=== PATIENT | female | born 1960 | race Caucasian/White ===

== ENCOUNTER 2021-06-19 06:13 | Outpatient (REF) | payer OTHER, SELFPAY ==
[2021-06-19 07:19] LABS: Hematocrit 39.8 % (37.0-47.0); Hemoglobin 13.3 g/dl (12.0-16.0); Mean Corpuscular HGB Conc 33.4 g/dl (31.0-35.0); Mean Corpuscular Hemoglobin 30.8 pg (27.0-33.0); Mean Corpuscular Volume 92.1 fL (80.0-98.0); Mean Platelet Volume 11.1 fL (9.4-12.3); Platelet Count 273 X10*3/uL (160-400); Red Blood Count 4.32 X10*6/uL (4.20-5.50); Red Cell Distribution Width 12.5 % (11.0-16.0)
[2021-06-19 07:56] LABS: Rheumatoid Factor < 15.0 IU/mL (<15.0)
[2021-06-19 07:58] LABS: Erythrocyte Sedimentation Rate 14 MM/HR (0-20)
[2021-06-19 08:03] LABS: Alanine Aminotransferase 30 U/L (0-31); Albumin Level 4.4 g/dL (3.5-5.0); Alkaline Phosphatase 89 U/L (39-117); Anion Gap 12 (12-20); Aspartate Amino Transferase 21 U/L (5-31); Bilirubin Total 0.3 mg/dL (0.0-1.0); Blood Urea Nitrogen 9 mg/dL (9-16); Calcium 9.4 mg/dL (8.4-10.2); Carbon Dioxide 29 mmol/L (22-29); Chloride 106 mmol/L (96-108); Cholesterol 188 mg/dL; Estimated Glomerular Filt Rate > 60; Glucose Random 113 mg/dL (60-115); HDL Cholesterol 60 mg/dL; LDL Cholesterol Calculated 117 mg/dl; Potassium 4.5 mmol/L (3.3-5.1); Sodium 142 mmol/L (135-145); Triglycerides 57 mg/dL; Uric Acid 7.7 mg/dL (2.4-5.7)
[2021-06-19 08:12] LABS: TSH reflex Free T4 2.21 uIU/mL (0.32-4.0)
[2021-06-19 08:37] LABS: Vitamin B12 339 pg/mL (200-900)
[2021-06-19 09:51] LABS: Creatinine Urine 182.87 mg/dL; Microalbum/Creatinine Ratio Ur 3.8 ug/mg cr
[2021-06-20 13:35] LABS: Lyme Abs Screen <0.90 index
[2021-06-21 12:51] LABS: Anti Nuclear Antibody Screen NEGATIVE (NEGATIVE)
== END 2021-06-19 06:14 | disposition home or self-care (01) ==
LOC: HO.LAB 06:13
PROVIDERS: PCP Internal Medicine; Visit Provider Internal Medicine
DX: Z00.00 Encounter for general adult medical examination without abnormal findings (principal); E03.9 Hypothyroidism, unspecified; E55.9 Vitamin D deficiency, unspecified; M13.0 Polyarthritis, unspecified; M79.10 Myalgia, unspecified site; R53.83 Other fatigue
CPT/HCPCS: 36415; 80053; 80061; 82043; 82306; 82550; 82607; 84443; 84550; 85027; 85652; 86038; 86039; 86431; 86617; 86618

== ENCOUNTER 2021-12-25 13:16 | Outpatient (REF) | payer OTHER, SELFPAY ==
--- NOTE | ~2021-12-25 | XR_ITS ---
EXAMINATION: BILATERAL KNEE X-RAY CLINICAL INFORMATION: Pain COMPARISON: None TECHNIQUE: 4 views of each knee FINDINGS: Right: Bone alignment is normal. No fracture or dislocation is seen. Joint spaces are normal. There is no joint effusion. There is soft tissue swelling over the tibial tubercle and inferior patellar tendon. Left: Bone alignment is normal. No fracture or dislocation is seen. The joint spaces are normal. There is no joint effusion. There is soft tissue swelling over the tibial tubercle and inferior patellar tendon.. XR/XR knee LT 4V IMPRESSION: Soft tissue swelling over the bilateral tibia tubercle and inferior patellar tendons. EXAMINATION: Lumbar spine x-ray CLINICAL INFORMATION: Pain COMPARISON: None. TECHNIQUE: 3 views of the lumbar spine FINDINGS: There is mild curvature of the lower lumbar spine to the left. There are postsurgical changes from fusion at L3-L4 and L4-L5. 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 There is degenerative disc disease at L5-S1. There is lower lumbar spine facet arthritis. No fracture or dislocation is seen. There is evidence of atherosclerotic disease. IMPRESSION: Postsurgical change to the lower lumbar spine. Mild scoliosis and degenerative changes.
--- NOTE | ~2021-12-25 | XR_ITS ---
EXAMINATION: BILATERAL KNEE X-RAY CLINICAL INFORMATION: Pain COMPARISON: None TECHNIQUE: 4 views of each knee FINDINGS: Right: Bone alignment is normal. No fracture or dislocation is seen. Joint spaces are normal. There is no joint effusion. There is soft tissue swelling over the tibial tubercle and inferior patellar tendon. Left: Bone alignment is normal. No fracture or dislocation is seen. The joint spaces are normal. There is no joint effusion. There is soft tissue swelling over the tibial tubercle and inferior patellar tendon.. XR/XR lumbar spine 2-3V IMPRESSION: Soft tissue swelling over the bilateral tibia tubercle and inferior patellar tendons. EXAMINATION: Lumbar spine x-ray CLINICAL INFORMATION: Pain COMPARISON: None. TECHNIQUE: 3 views of the lumbar spine FINDINGS: There is mild curvature of the lower lumbar spine to the left. There are postsurgical changes from fusion at L3-L4 and L4-L5. 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 There is degenerative disc disease at L5-S1. There is lower lumbar spine facet arthritis. No fracture or dislocation is seen. There is evidence of atherosclerotic disease. IMPRESSION: Postsurgical change to the lower lumbar spine. Mild scoliosis and degenerative changes.
--- NOTE | ~2021-12-25 | XR_ITS ---
EXAMINATION: BILATERAL KNEE X-RAY CLINICAL INFORMATION: Pain COMPARISON: None TECHNIQUE: 4 views of each knee FINDINGS: Right: Bone alignment is normal. No fracture or dislocation is seen. Joint spaces are normal. There is no joint effusion. There is soft tissue swelling over the tibial tubercle and inferior patellar tendon. Left: Bone alignment is normal. No fracture or dislocation is seen. The joint spaces are normal. There is no joint effusion. There is soft tissue swelling over the tibial tubercle and inferior patellar tendon.. XR/XR knee RT 4V IMPRESSION: Soft tissue swelling over the bilateral tibia tubercle and inferior patellar tendons. EXAMINATION: Lumbar spine x-ray CLINICAL INFORMATION: Pain COMPARISON: None. TECHNIQUE: 3 views of the lumbar spine FINDINGS: There is mild curvature of the lower lumbar spine to the left. There are postsurgical changes from fusion at L3-L4 and L4-L5. 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 There is degenerative disc disease at L5-S1. There is lower lumbar spine facet arthritis. No fracture or dislocation is seen. There is evidence of atherosclerotic disease. IMPRESSION: Postsurgical change to the lower lumbar spine. Mild scoliosis and degenerative changes.
== END 2021-12-25 13:17 | disposition home or self-care (01) ==
LOC: HO.XRAY 13:16
PROVIDERS: PCP Internal Medicine; Visit Provider Internal Medicine
DX: M54.50 Low back pain, unspecified (principal); M25.561 Pain in right knee; M25.562 Pain in left knee
CPT/HCPCS: 72100; 73564

== ENCOUNTER 2022-10-12 06:07 | Outpatient (REF) | payer BC, SELFPAY ==
[2022-10-12 06:14] LABS: MANUAL DIFF FLAG NO
[2022-10-12 07:49] LABS: Basophils Percent Auto 0.3 % (0-2); Eosinophils Absolute Auto 0.2 X10*3/uL (0.0-0.4); Eosinophils Percent Auto 2.2 % (0-4); Hematocrit 40.2 % (37.0-47.0); Hemoglobin 12.9 g/dl (12.0-16.0); Imm Gran Abs Auto 0.03 X10*3/uL (0.00-0.03); Imm Gran Pct Auto 0.4 % (0.0-0.4); Lymphocytes Percent Auto 14.2 % (20-40); Mean Corpuscular HGB Conc 32.1 g/dl (31.0-35.0); Mean Corpuscular Hemoglobin 29.7 pg (27.0-33.0); Mean Corpuscular Volume 92.4 fL (80.0-98.0); Mean Platelet Volume 11.5 fL (9.4-12.3); Monocytes Absolute Auto 0.5 X10*3/uL (0.1-1.2); Monocytes Percent Auto 7.6 % (2-11); Neutrophils Percent Auto 75.3 % (45-73); Platelet Count 286 X10*3/uL (160-400); Red Blood Count 4.35 X10*6/uL (4.20-5.50); Red Cell Distribution Width 12.7 % (11.0-16.0); White Blood Count 6.7 X10*3/uL (4.8-10.8)
[2022-10-12 08:14] LABS: Creatinine Urine 428.76 mg/dL; Microalbum/Creatinine Ratio Ur 21.4 ug/mg cr
[2022-10-12 08:24] LABS: Alanine Aminotransferase 21 U/L (0-31); Albumin Level 4.1 g/dL (3.5-5.0); Alkaline Phosphatase 82 U/L (39-117); Anion Gap 14 (12-20); Aspartate Amino Transferase 14 U/L (5-31); Bilirubin Total 0.5 mg/dL (0.0-1.0); Blood Urea Nitrogen 11 mg/dL (9-16); Calcium 9.2 mg/dL (8.4-10.2); Carbon Dioxide 28 mmol/L (22-29); Chloride 106 mmol/L (96-108); Cholesterol 205 mg/dL; Estimated Glomerular Filt Rate 60; Glucose Random 100 mg/dL (60-115); HDL Cholesterol 63 mg/dL; LDL Cholesterol Calculated 132 mg/dl; Potassium 4.5 mmol/L (3.3-5.1); Sodium 143 mmol/L (135-145); Total Protein 6.6 g/dL (6.5-8.0); Triglycerides 54 mg/dL
[2022-10-12 08:44] LABS: TSH reflex Free T4 1.55 uIU/mL (0.32-4.0)
== END 2022-10-12 06:08 | disposition home or self-care (01) ==
LOC: HO.LAB 06:07
PROVIDERS: PCP Internal Medicine; Visit Provider Internal Medicine
DX: Z00.00 Encounter for general adult medical examination without abnormal findings (principal); E78.2 Mixed hyperlipidemia; I10 Essential (primary) hypertension; E30.9 Disorder of puberty, unspecified
CPT/HCPCS: 36415; 80053; 80061; 82043; 84443; 85025

== ENCOUNTER 2023-01-04 09:04 | Outpatient (REF) | payer BC, SELFPAY ==
--- NOTE | ~2023-01-04 | XR_ITS ---
EXAMINATION: XR THORACIC SPINE CLINICAL INFORMATION: Pain COMPARISON: MRI thoracic spine from 01/04/2009 TECHNIQUE: 3 views of the thoracic spine were obtained. FINDINGS: No acute visible fracture or dislocation. Mild to moderate multilevel degenerative changes disc space narrowing, anterior bridging osteophyte formation, and facet arthropathy. Vertebral body heights and disc spaces are otherwise maintained. Posterior elements are intact. Paraspinal soft tissues are unremarkable. Visualized portions of the chest and upper abdomen are unremarkable. XR/XR thoracic spine 3V IMPRESSION: 1. No acute visible fracture or dislocation. 2. Mild to moderate multilevel degenerative changes.
== END 2023-01-04 09:05 | disposition home or self-care (01) ==
LOC: HO.XRAY 09:04
PROVIDERS: PCP Internal Medicine; Visit Provider Internal Medicine
DX: M54.6 Pain in thoracic spine (principal)
CPT/HCPCS: 72072

== ENCOUNTER 2024-04-04 09:58 | Outpatient (REF) | payer OTHER, SELFPAY ==
--- NOTE | ~2024-04-04 | MM_ITS ---
EXAMINATION: MM SCREENING DIGITAL BREAST TOMOSYNTHESIS, BILATERAL CLINICAL INFORMATION: Screening. Asymptomatic. COMPARISON: Mammography: This study is compared to the only prior mammogram dating back to 2017. TECHNIQUE: Digital breast tomosynthesis is performed in both the craniocaudal and mediolateral oblique views along with computer-aided detection (CAD). Synthesized 2D images are generated from the tomosynthesis. FINDINGS: There are scattered areas of fibroglandular density (ACR BI-RADS breast composition Category b). There are no significant masses, abnormal calcifications, or other abnormalities. MM/MM tomosynthesis screening BI IMPRESSION: No mammographic evidence of malignancy. ASSESSMENT: BI-RADS BI-RADS 1 - Negative RECOMMENDATION: Routine annual mammography screening. 1 year F/U This examination should not preclude the clinical evaluation of a suspicious palpable abnormality. This patient's information was entered into a reminder system with a target due date for their next mammogram. Electronically signed by: Malena Hong MD 05/02/2024 12:15 PM EDT
== END 2024-04-04 09:59 | disposition home or self-care (01) ==
LOC: HO.MAMMO 09:58
PROVIDERS: PCP Internal Medicine; Visit Provider Internal Medicine
DX: Z12.31 Encounter for screening mammogram for malignant neoplasm of breast (principal)
CPT/HCPCS: 77063; 77067

== ENCOUNTER → 2024-04-04 10:15 | Outpatient (BNV) | payer OTHER, SELFPAY | PROVIDERS: PCP Internal Medicine; Visit Provider Radiology Diagnostic Radiology | DX: Z12.31 Encounter for screening mammogram for malignant neoplasm of breast (principal) | CPT/HCPCS: 77063; 77067 ==